=== PATIENT | male | born 1995 | race Caucasian/White ===

== ENCOUNTER 2016-10-26 05:12 | Emergency (ER) | payer SELFPAY ==
[2016-10-26] MEDS ORDERED: Mag-Al Plus 1200 MG/1200 MG/120 MG/30 ML UDCUP ONE (05:54)
[2016-10-26] MEDS ORDERED: Lidocaine Viscous Sol 2% 15 ml UD Cup ONE (05:54)
== END 2016-10-26 06:16 | disposition home or self-care (01) ==
LOC: BURERS 05:12
DX: J02.9 Acute pharyngitis, unspecified (principal); F17.210 Nicotine dependence, cigarettes, uncomplicated
CPT/HCPCS: 87081; 87430; 99283

== ENCOUNTER 2017-08-02 20:18 | Emergency (ER) | payer SELFPAY ==
[2017-08-02] MEDS ORDERED: diphenhydrAMINE 25 MG CAP ONE (21:05)
[2017-08-02] MEDS ORDERED: Acetaminophen 500 MG TAB ONE (21:05)
[2017-08-02] MEDS ORDERED: Ibuprofen 200 MG TAB ONE (21:05)
== END 2017-08-02 21:10 | disposition home or self-care (01) ==
LOC: BURERS 20:18
DX: G43.909 Migraine, unspecified, not intractable, without status migrainosus (principal); D66 Hereditary factor VIII deficiency; F17.210 Nicotine dependence, cigarettes, uncomplicated
CPT/HCPCS: 99283

== ENCOUNTER 2019-05-07 08:09 | Emergency (ER) | payer SELFPAY ==
[2019-05-07] MEDS ORDERED: Ondansetron ODT 4 MG TAB ONE (08:32)
[2019-05-07] MEDS ORDERED: Oseltamivir 75 MG CAP ONE (08:43)
== END 2019-05-07 08:50 | disposition home or self-care (01) ==
LOC: BURERS 08:09
DX: J11.1 Influenza due to unidentified influenza virus with other respiratory manifestations (principal); F17.210 Nicotine dependence, cigarettes, uncomplicated
CPT/HCPCS: 99283; Q0162

== ENCOUNTER 2024-12-15 14:23 | Emergency (ER) | payer OTHER ==
[2024-12-15] MEDS ORDERED: Lidocaine 1% (PF) 30 ML VIAL ONE (14:42)
[2024-12-15] MEDS ORDERED: Cephalexin 250 MG CAP ONE (15:02)
== END 2024-12-15 15:05 | disposition home or self-care (01) ==
LOC: BURERS 14:23
DX: L02.414 Cutaneous abscess of left upper limb (principal); F17.210 Nicotine dependence, cigarettes, uncomplicated
CPT/HCPCS: 10060